=== PATIENT | female | born 1965 | race African-American/Black ===

== ENCOUNTER 2018-01-09 16:02 | Emergency (ER) | payer MEDICARE, MEDICAID ==
[~2018-01-09] VITALS: Ht 160 cm; Wt 90.0 kg
[2018-01-09] MEDS ORDERED: PHEN-434 PO (16:10)
[2018-01-09] MEDS ORDERED: HYDROCODONE/ACETAMINOPHEN 5/325MG TABLET PO ONE (18:45)
[2018-01-09 18:46] LABS: CLARITY URINE CLEAR (CLEAR); COLOR URINE YELLOW (YELLOW); KETONES URINE NEGATIVE (NEGATIVE); LEUKOCYTE ESTERASE URINE NEGATIVE (NEGATIVE); NITRITE URINE NEGATIVE (NEGATIVE); OCCULT BLOOD URINE NEGATIVE (NEGATIVE); PH URINE 5.5 (4.5-8.0); PROTEIN URINE 3+ (NEGATIVE); SPECIFIC GRAVITY URINE 1.017 (1.005-1.030)
[2018-01-09 18:53] LABS: METHADONE URINE SCREEN NEGATIVE (NEGATIVE); OPIATES URINE SCREEN NEGATIVE (NEGATIVE)
[2018-01-09 18:54] LABS: *AMPHETAMINES SCREEN URINE NEGATIVE (NEGATIVE); *BARBITURATES SCREEN URINE NEGATIVE (NEGATIVE); *BENZODIAZEPINES SCREEN URINE NEGATIVE (NEGATIVE); *COCAINE SCREEN URINE NEGATIVE (NEGATIVE); CANNABINOID URINE SCREEN NEGATIVE (NEGATIVE); PHENCYCLIDINE URINE SCREEN NEGATIVE (NEGATIVE)
[2018-01-09 20:58] VITALS: BP 151/95
== END 2018-01-09 21:30 | disposition home or self-care (01) ==
LOC: ER 16:02
DX: M47.896 Other spondylosis, lumbar region (principal); M43.16 Spondylolisthesis, lumbar region; G89.29 Other chronic pain; R26.9 Unspecified abnormalities of gait and mobility; N17.0 Acute kidney failure with tubular necrosis; E86.0 Dehydration; I10 Essential (primary) hypertension; R61 Generalized hyperhidrosis; R80.9 Proteinuria, unspecified; R82.71 Bacteriuria; K08.9 Disorder of teeth and supporting structures, unspecified; E66.9 Obesity, unspecified; Z68.35 Body mass index [BMI] 35.0-35.9, adult; J45.909 Unspecified asthma, uncomplicated; G40.909 Epilepsy, unspecified, not intractable, without status epilepticus
CPT/HCPCS: 72070; 72100; 80305; 81003; 99285

== ENCOUNTER 2018-01-20 03:41 | Emergency (ER) | payer MEDICARE, MEDICAID ==
[~2018-01-20] VITALS: Ht 165.1 cm; Wt 81.8 kg
[~2018-01-20 03:41] MED LIST: PHEN-434 PO
[2018-01-20] MEDS ORDERED: MORPHINE SULFATE 10 MG/ML CPJ IM ONE (05:30)
[2018-01-20] MEDS ORDERED: HYDROCODONE/ACETAMINOPHEN 5/325MG TABLET PO ONE (06:30)
[2018-01-20] MEDS ORDERED: ALBUTEROL (0.083%) 2.5MG/3ML NEB HHN ONE (06:30)
[2018-01-20] MEDS ORDERED: IBUPROFEN 600MG TABLET PO ONE (07:30)
[2018-01-20 16:37] VITALS: BP 152/78
== END 2018-01-20 17:23 | disposition home or self-care (01) ==
LOC: ER 03:41
DX: M54.5 Low back pain (principal); R06.2 Wheezing; J45.909 Unspecified asthma, uncomplicated; I10 Essential (primary) hypertension; G35 Multiple sclerosis; Z88.8 Allergy status to other drugs, medicaments and biological substances; Z88.2 Allergy status to sulfonamides; Z98.890 Other specified postprocedural states
CPT/HCPCS: 94640; 96372; 99283; J2270; J7611

== ENCOUNTER 2018-01-21 16:51 | Emergency (ER) | payer MEDICARE, MEDICAID ==
[~2018-01-21] VITALS: Ht 162.6 cm; Wt 82.0 kg
[2018-01-21 16:53] VITALS: BP 136/94
[2018-01-21] MEDS ORDERED: IPRATROPIUM BROMIDE (0.02%) 0.5MG/2.5ML NEB HHN STA (16:54)
[2018-01-21] MEDS ORDERED: ALBUTEROL (0.083%) 2.5MG/3ML NEB HHN STA (16:54)
[2018-01-21] MEDS ORDERED: PREDNISONE 20MG TABLET PO STA (16:54)
[2018-01-21] MEDS ORDERED: IBUPROFEN 600MG TABLET PO ONE ×2 (17:00→17:15)
== END 2018-01-21 17:07 | disposition left against medical advice (07) ==
LOC: ER 17:05
DX: J45.901 Unspecified asthma with (acute) exacerbation (principal); M54.89 Other dorsalgia
CPT/HCPCS: 99281; J7611

== ENCOUNTER 2018-01-23 02:25 | Emergency (ER) | payer MEDICARE, MEDICAID ==
[~2018-01-23] VITALS: Ht 160 cm; Wt 100.0 kg
[2018-01-23] MEDS ORDERED: KETOROLAC 60MG/2ML VIAL IM ONE (04:15)
[2018-01-23] MEDS ORDERED: MORPHINE SULFATE 10 MG/ML CPJ IM ONE (04:15)
[2018-01-23] MEDS ORDERED: HYDROCODONE/ACETAMINOPHEN 5/325MG TABLET PO ONE (06:15)
[2018-01-23 07:53] VITALS: BP 137/78
== END 2018-01-23 07:57 | disposition home or self-care (01) ==
LOC: ER 02:49
DX: M43.17 Spondylolisthesis, lumbosacral region (principal); M54.9 Dorsalgia, unspecified; I10 Essential (primary) hypertension; G40.909 Epilepsy, unspecified, not intractable, without status epilepticus; J45.909 Unspecified asthma, uncomplicated; Z88.8 Allergy status to other drugs, medicaments and biological substances
CPT/HCPCS: 96372; 99284; J1885; J2270

== ENCOUNTER 2018-02-03 04:16 | Emergency (ER) | payer MEDICARE, MEDICAID ==
[~2018-02-03] VITALS: Ht 152.4 cm; Wt 81.0 kg
[2018-02-03] MEDS ORDERED: KETOROLAC 60MG/2ML VIAL IM STA (07:39)
[2018-02-03 08:25] LABS: CLARITY URINE CLEAR (CLEAR); COLOR URINE YELLOW (YELLOW); KETONES URINE NEGATIVE (NEGATIVE); LEUKOCYTE ESTERASE URINE NEGATIVE (NEGATIVE); NITRITE URINE NEGATIVE (NEGATIVE); OCCULT BLOOD URINE NEGATIVE (NEGATIVE); PROTEIN URINE 2+ (NEGATIVE); SPECIFIC GRAVITY URINE 1.021 (1.005-1.030); UROBILINOGEN URINE 0.2 E.U./dL (0.2-1.0)
[2018-02-03] MEDS ORDERED: HYDROCODONE/APAP 7.5/325MG 1 TAB TABLET PO ONE (08:45)
[2018-02-03] MEDS ORDERED: CLONIDINE 0.1MG TABLET PO ONE ×2 (09:00→14:15)
[2018-02-03 11:30] LABS: BASOPHILS % 1.4 % (0.0-2.0); EOSINOPHILS % 3.9 % (0.0-5.0); HEMOGLOBIN. 11.1 g/dL (12.0-16.0); LYMPHOCYTES % 32.2 % (20.0-50.0); MEAN CORPUSCULAR HEMOGLOBIN 25.7 pg (28.0-32.0); MEAN CORPUSCULAR VOLUME 78.8 fL (81.0-99.0); MEAN PLATELET VOLUME 7.5 fl (7.4-10.4); MONOCYTES % 10.3 % (2.0-8.0); NEUTROPHILS % 52.2 % (40.0-76.0); PLATELET 292 x1000/uL (130-400); RED BLOOD CELL COUNT 4.31 mill/uL (4.2-5.4); RED CELL DISTRIBUTION WIDTH 18.8 % (11.6-14.6)
[2018-02-03 12:08] LABS: CHLORIDE 103 mEq/L (98-107)
[2018-02-03] MEDS ORDERED: HYDROCODONE/ACETAMINOPHEN 5/325MG TABLET PO STA (13:23)
[2018-02-03 14:11] VITALS: BP 196/122
[2018-02-03] MEDS ORDERED: IOHEXOL-300 100 ML BOTTLE ONE (14:59)
== END 2018-02-03 14:37 | disposition home or self-care (01) ==
LOC: ER 04:16
DX: M54.41 Lumbago with sciatica, right side (principal); M43.10 Spondylolisthesis, site unspecified; J45.909 Unspecified asthma, uncomplicated; I10 Essential (primary) hypertension; Z88.8 Allergy status to other drugs, medicaments and biological substances
CPT/HCPCS: 36415; 74177; 80053; 81003; 83690; 85025; 96372; 99285; J1885; Q9967

== ENCOUNTER 2018-02-15 03:15 | Emergency (ER) | payer MEDICARE, MEDICAID ==
[~2018-02-15] VITALS: Ht 160 cm; Wt 68.0 kg
[2018-02-15] MEDS ORDERED: KETOROLAC 60MG/2ML VIAL IM ONE (06:45)
[2018-02-15] MEDS ORDERED: HYDROCODONE/ACETAMINOPHEN 5/325MG TABLET PO ONE (06:45)
[2018-02-15 08:51] VITALS: BP 180/100
== END 2018-02-15 08:54 | disposition home or self-care (01) ==
LOC: ER 03:15
DX: G89.29 Other chronic pain (principal); M54.5 Low back pain; I10 Essential (primary) hypertension; J45.909 Unspecified asthma, uncomplicated; R56.9 Unspecified convulsions; Z88.8 Allergy status to other drugs, medicaments and biological substances; Z91.09 Other allergy status, other than to drugs and biological substances; Z79.899 Other long term (current) drug therapy
CPT/HCPCS: 96372; 99283; J1885

== ENCOUNTER 2018-02-16 02:14 | Emergency (ER) | payer MEDICARE, MEDICAID ==
[~2018-02-16] VITALS: Ht 152.4 cm; Wt 82.0 kg
[2018-02-16] MEDS ORDERED: IBUPROFEN 600MG TABLET PO ONE (03:45)
[2018-02-16] MEDS ORDERED: ACETAMINOPHEN WITH CODEINE 300/30MG TABLET PO ONE (03:45)
[2018-02-16 03:51] VITALS: BP 148/82
== END 2018-02-16 04:25 | disposition home or self-care (01) ==
LOC: ER 02:14
DX: M54.5 Low back pain (principal); G89.29 Other chronic pain; J45.909 Unspecified asthma, uncomplicated; Z88.8 Allergy status to other drugs, medicaments and biological substances
CPT/HCPCS: 81025; 99283

== ENCOUNTER 2018-02-18 19:34 | Emergency (ER) | payer MEDICARE, MEDICAID ==
[~2018-02-18] VITALS: Ht 152.4 cm; Wt 86.0 kg
[2018-02-18] MEDS ORDERED: KETOROLAC 60MG/2ML VIAL IM ONE (21:15)
[2018-02-18] MEDS ORDERED: ONDANSETRON HCL 4MG/2ML VIAL IV ONE (23:45)
[2018-02-18] MEDS ORDERED: MORPHINE SULFATE 10 MG/ML CPJ IV ONE (23:45)
[2018-02-19 00:56] VITALS: BP 147/86
== END 2018-02-19 02:13 | disposition home or self-care (01) ==
LOC: ER 19:34
DX: M54.5 Low back pain (principal); J45.909 Unspecified asthma, uncomplicated; I10 Essential (primary) hypertension; W18.39XA Other fall on same level, initial encounter; Y93.89 Activity, other specified; Y92.89 Other specified places as the place of occurrence of the external cause; Y99.8 Other external cause status; Z88.8 Allergy status to other drugs, medicaments and biological substances; Z88.2 Allergy status to sulfonamides
CPT/HCPCS: 72100; 96372; 96374; 96375; 99284; J1885; J2270; J2405

== ENCOUNTER 2018-02-19 09:23 | Emergency (ER) | payer MEDICARE, MEDICAID ==
[~2018-02-19] VITALS: Ht 167.6 cm; Wt 87.0 kg
[2018-02-19] MEDS ORDERED: KETOROLAC 30MG/ML VIAL IV STA (16:35)
[2018-02-19] MEDS ORDERED: SODIUM CHLORIDE 0.9% 1,000 ML IV ONE (16:35)
[2018-02-19] MEDS ORDERED: DIAZEPAM 5 MG TABLET PO ONE (16:45)
[2018-02-19 18:45] VITALS: BP 184/99
[2018-02-19] MEDS ORDERED: ACETAMINOPHEN 325MG TABLET PO ONE (20:00)
== END 2018-02-19 20:15 | disposition home or self-care (01) ==
LOC: ER 09:50
DX: M54.5 Low back pain (principal); J45.909 Unspecified asthma, uncomplicated; I10 Essential (primary) hypertension; Z88.8 Allergy status to other drugs, medicaments and biological substances; Z88.2 Allergy status to sulfonamides; Z96.659 Presence of unspecified artificial knee joint; Z98.890 Other specified postprocedural states
CPT/HCPCS: 72131; 93971; 96374; 99285; J1885; J7030

== ENCOUNTER 2019-03-30 01:18 | Emergency (ER) | payer MEDICARE, MEDICAID ==
[~2019-03-30] VITALS: Ht 165.1 cm; Wt 100.0 kg
[2019-03-30] MEDS ORDERED: IPRATROPIUM BROMIDE (0.02%) 0.5MG/2.5ML NEB HHN STA (01:34)
[2019-03-30] MEDS ORDERED: PREDNISONE 20MG TABLET PO STA (01:34)
[2019-03-30] MEDS ORDERED: VISCOUS LIDOCAINE 2% 15 ML UDC MM STA (02:57)
[2019-03-30] MEDS ORDERED: ALBUTEROL (0.5%) 2.5MG/0.5ML NEB HHN ONE (03:00)
[2019-03-30 04:07] VITALS: BP 183/90
== END 2019-03-30 04:14 | disposition home or self-care (01) ==
LOC: ER 01:18
DX: J45.901 Unspecified asthma with (acute) exacerbation (principal); E66.9 Obesity, unspecified; I10 Essential (primary) hypertension; Z88.8 Allergy status to other drugs, medicaments and biological substances; Z87.01 Personal history of pneumonia (recurrent)
CPT/HCPCS: 71045; 94640; 99284; J7512; J7611

== ENCOUNTER 2019-04-27 03:15 | Emergency (ER) | payer MEDICARE, MEDICAID ==
[~2019-04-27] VITALS: Ht 160 cm; Wt 92.0 kg
[2019-04-27] MEDS ORDERED: IPRATROPIUM BROMIDE (0.02%) 0.5MG/2.5ML NEB HHN STA (04:13)
[2019-04-27] MEDS ORDERED: ALBUTEROL (0.083%) 2.5MG/3ML NEB HHN STA (04:13)
[2019-04-27] MEDS ORDERED: HYDROCODONE/ACETAMINOPHEN 5/325MG TABLET PO STA (04:13)
[2019-04-27 04:45] LABS: CHLORIDE 104 mEq/L (98-107)
[2019-04-27 04:53] LABS: BASOPHILS % 0.7 % (0.0-2.0); EOSINOPHILS % 4.1 % (0.0-5.0); HEMATOCRIT. 34.3 % (36.0-48.0); HEMOGLOBIN. 11.6 g/dL (12.0-16.0); LYMPHOCYTES % 24.6 % (20.0-50.0); MEAN CORPUSCULAR HEMOGLOBIN 28.8 pg (28.0-32.0); MEAN CORPUSCULAR VOLUME 85.4 fL (81.0-99.0); MEAN PLATELET VOLUME 7.6 fl (7.4-10.4); MONOCYTES % 11.4 % (2.0-8.0); NEUTROPHILS % 59.2 % (40.0-76.0); PLATELET 200 x1000/uL (130-400); RED BLOOD CELL COUNT 4.02 mill/uL (4.2-5.4); RED CELL DISTRIBUTION WIDTH 14.7 % (11.6-14.6)
[2019-04-27 06:33] VITALS: BP 132/80
== END 2019-04-27 06:33 | disposition home or self-care (01) ==
LOC: ER 03:45
DX: M54.5 Low back pain (principal); R07.0 Pain in throat; J45.909 Unspecified asthma, uncomplicated; I10 Essential (primary) hypertension; Z88.8 Allergy status to other drugs, medicaments and biological substances
CPT/HCPCS: 36415; 71045; 80048; 85025; 94640; 99284; J7611

== ENCOUNTER 2022-09-17 10:41 | Inpatient (IN) | payer BC, MEDICAID ==
[~2022-09-17] VITALS: Ht 154.9 cm; Wt 82.2 kg
[2022-09-17 14:07] LABS: BASOPHILS % 0.6 % (0.0-2.0); EOSINOPHILS % 4.2 % (0.0-5.0); HEMATOCRIT. 27.7 % (36.0-48.0); HEMOGLOBIN. 9.1 g/dL (12.0-16.0); LYMPHOCYTES % 18.7 % (20.0-50.0); MEAN CORPUSCULAR HEMOGLOBIN 29.2 pg (28.0-32.0); MEAN CORPUSCULAR VOLUME 88.8 fL (81.0-99.0); MEAN PLATELET VOLUME 7.8 fl (7.4-10.4); MONOCYTES % 10.2 % (2.0-8.0); NEUTROPHILS % 66.3 % (40.0-76.0); PLATELET 191 x1000/uL (130-400); RED BLOOD CELL COUNT 3.12 mill/uL (4.2-5.4)
[2022-09-17 14:14] LABS: CHLORIDE 108 mEq/L (98-107)
[2022-09-17] MEDS ORDERED: FUROSEMIDE 100MG/10ML VIAL IVP ONE (14:45)
[2022-09-18 05:05] VITALS: BP 169/97
[2022-09-18] MEDS ORDERED: CLONIDINE 0.1MG TABLET PO PRN (07:00)
[2022-09-18] MEDS ORDERED: ACETAMINOPHEN 325MG TABLET PO PRN (07:00)
[2022-09-18 08:00] VITALS: BP 184/127
[2022-09-18] MEDS: FUROSEMIDE 40MG/4ML VIAL IVP SCH ×3 (08:05→16:41)
[2022-09-18] MEDS: HEPARIN 5000 UNITS/ML VIAL SUBCUT SCH ×3 (08:06→21:08)
[2022-09-18] MEDS: HYDROCODONE/ACETAMINOPHEN 5/325MG TABLET PO PRN ×2 (08:07→21:11)
[2022-09-18] MEDS ORDERED: IPRATROPIUM/ALBUTEROL 0.5-3(2.5)MG/3ML NEB HHN PRN (09:15)
[2022-09-18] MEDS ORDERED: ONDANSETRON HCL 4MG/2ML INJ IV PRN (09:15)
[2022-09-18] MEDS ORDERED: DOCUSATE SODIUM 100MG CAPSULE PO PRN (09:15)
[2022-09-18] MEDS ORDERED: LORAZEPAM 0.5MG TABLET PO PRN (09:15)
[2022-09-18] MEDS: HYDRALAZINE HCL 50MG TABLET PO SCH ×3 (10:21→21:07)
[2022-09-18] MEDS: AMLODIPINE 10MG TABLET PO SCH (10:21)
[2022-09-18] MEDS ORDERED: POTASSIUM CHLORIDE 20MEQ TABLET SR PO NR (10:30)
[2022-09-18 12:00] VITALS: BP 146/72
[2022-09-18] MEDS ORDERED: DEXTROSE 50% WATER 50ML SYRINGE IV SCH (12:45)
[2022-09-18] MEDS: NALOXONE HCL 0.4MG/ML VIAL IV PRN ×2 (12:58→14:50)
[2022-09-18 13:12] LABS: CLARITY URINE CLEAR (CLEAR); COLOR URINE YELLOW (YELLOW); KETONES URINE NEGATIVE (NEGATIVE); LEUKOCYTE ESTERASE URINE NEGATIVE (NEGATIVE); NITRITE URINE NEGATIVE (NEGATIVE); OCCULT BLOOD URINE NEGATIVE (NEGATIVE); PH URINE 7.5 (4.5-8.0); PROTEIN URINE 3+ (NEGATIVE); SPECIFIC GRAVITY URINE 1.009 (1.005-1.030); UROBILINOGEN URINE 0.2 E.U./dL (0.2-1.0)
[2022-09-18 13:41] LABS: *AMPHETAMINES SCREEN URINE NEGATIVE (NEGATIVE); *BARBITURATES SCREEN URINE NEGATIVE (NEGATIVE); *BENZODIAZEPINES SCREEN URINE NEGATIVE (NEGATIVE); *COCAINE SCREEN URINE NEGATIVE (NEGATIVE); CANNABINOID URINE SCREEN NEGATIVE (NEGATIVE); METHADONE URINE SCREEN NEGATIVE (NEGATIVE); OPIATES URINE SCREEN NEGATIVE (NEGATIVE); PHENCYCLIDINE URINE SCREEN NEGATIVE (NEGATIVE)
[2022-09-18 14:10] LABS: BG BASE EXCESS -0.9 mmol/L (-2.0-2.0); BG CARBOXYHEMOGLOBIN 0.3 % (0.5-1.5); BG DEOXYHEMOGLOBIN 11.2 % (0.0-5.0); BG FRACTION INSPIRED OXYGEN 21; BG HCO3 ACT 25.7 mmol/L (22.0-26.0); BG METHEMOGLOBIN 0.1 % (0.0-1.5); BG OXYGEN SATURATION 88.8 % (92.0-98.5); BG OXYHEMOGLOBIN 88.4 % (94.0-97.0); BG PCO2 52.9 mmHg (35.0-45.0); BG PH 7.305 (7.350-7.450); BG PO2 60.8 mmHg (75.0-100.0); BG SAMPLE SITE RIGHT BRACHIAL; BG TOTAL HEMOGLOBIN 9.4 g/dL (12.0-18.0); BG VENT MODE ROOM AIR
[2022-09-18] MEDS ORDERED: DEXTROSE 50% WATER 50ML SYRINGE IV PRN (14:45)
[2022-09-18 16:00] VITALS: BP 114/80
[2022-09-18] MEDS: BLOOD SUGAR DIAGNOSTIC STRIP TEST SCH ×2 (16:39→21:02)
[2022-09-18] MEDS: INSULIN LISPRO 100 UNITS/ML SUBCUT SCH ×2 (16:39→21:00)
[2022-09-18 17:10] LABS: BG BASE EXCESS 0.9 mmol/L (-2.0-2.0); BG CARBOXYHEMOGLOBIN 0.3 % (0.5-1.5); BG FRACTION INSPIRED OXYGEN 40; BG HCO3 ACT 27.4 mmol/L (22.0-26.0); BG METHEMOGLOBIN 0.2 % (0.0-1.5); BG OXYHEMOGLOBIN 96.5 % (94.0-97.0); BG PH 7.324 (7.350-7.450); BG PO2 97.8 mmHg (75.0-100.0); BG SAMPLE SITE RIGHT BRACHIAL; BG TOTAL HEMOGLOBIN 9.7 g/dL (12.0-18.0); BG VENT MODE MASK - BIPAP
[2022-09-18 20:00] VITALS: BP 149/95
[2022-09-18] MEDS: DOXAZOSIN MESYLATE 2MG TABLET PO SCH (21:07)
[2022-09-18 23:59] VITALS: BP 123/72
[2022-09-19 00:16] LABS: D-DIMER 0.54 mg/L FEU (<0.50)
[2022-09-19] MEDS: HYDROCODONE/ACETAMINOPHEN 5/325MG TABLET PO PRN ×3 (02:35→21:05)
[2022-09-19 04:00] VITALS: BP 106/66
[2022-09-19 06:25] LABS: HEMATOCRIT. 27.5 % (36.0-48.0); HEMOGLOBIN. 8.9 g/dL (12.0-16.0); MEAN CORPUSCULAR HEMOGLOBIN 28.8 pg (28.0-32.0); MEAN CORPUSCULAR VOLUME 89.2 fL (81.0-99.0); MEAN PLATELET VOLUME 8.2 fl (7.4-10.4); PLATELET 178 x1000/uL (130-400); RED BLOOD CELL COUNT 3.08 mill/uL (4.2-5.4)
[2022-09-19] MEDS: BLOOD SUGAR DIAGNOSTIC STRIP TEST SCH ×4 (06:36→21:01)
[2022-09-19] MEDS: FUROSEMIDE 40MG/4ML VIAL IVP SCH ×2 (06:37→17:44)
[2022-09-19] MEDS: HEPARIN 5000 UNITS/ML VIAL SUBCUT SCH ×3 (06:38→21:05)
[2022-09-19] MEDS: HYDRALAZINE HCL 50MG TABLET PO SCH ×3 (06:38→21:02)
[2022-09-19] MEDS: INSULIN LISPRO 100 UNITS/ML SUBCUT SCH ×4 (07:20→21:00)
[2022-09-19 08:00] VITALS: BP 129/98
[2022-09-19 09:05] LABS: BG BASE EXCESS 3.4 mmol/L (-2.0-2.0); BG CARBOXYHEMOGLOBIN 0.2 % (0.5-1.5); BG DEOXYHEMOGLOBIN 6.8 % (0.0-5.0); BG FRACTION INSPIRED OXYGEN 21; BG METHEMOGLOBIN 0.3 % (0.0-1.5); BG OXYGEN SATURATION 93.2 % (92.0-98.5); BG OXYHEMOGLOBIN 92.7 % (94.0-97.0); BG PCO2 49.2 mmHg (35.0-45.0); BG PH 7.388 (7.350-7.450); BG PO2 65.8 mmHg (75.0-100.0); BG SAMPLE SITE RIGHT BRACHIAL; BG TOTAL HEMOGLOBIN 10.2 g/dL (12.0-18.0); BG VENT MODE ROOM AIR
[2022-09-19] MEDS: AMLODIPINE 10MG TABLET PO SCH (10:00)
[2022-09-19 12:00] VITALS: BP 131/74
[2022-09-19 16:00] VITALS: BP 123/79
[2022-09-19 18:32] LABS: PLATELET ESTIMATE NORMAL
[2022-09-19 20:00] VITALS: BP 143/88
[2022-09-19] MEDS: DOXAZOSIN MESYLATE 2MG TABLET PO SCH (21:03)
[2022-09-19] MEDS: IPRATROPIUM/ALBUTEROL 0.5-3(2.5)MG/3ML NEB HHN SCH (22:49)
[2022-09-19 23:51] VITALS: BP 133/76
[2022-09-20] MEDS: IPRATROPIUM/ALBUTEROL 0.5-3(2.5)MG/3ML NEB HHN SCH ×2 (00:58→08:29)
[2022-09-20 04:00] VITALS: BP 147/95
[2022-09-20] MEDS: FUROSEMIDE 40MG/4ML VIAL IVP SCH (06:38)
[2022-09-20] MEDS: HEPARIN 5000 UNITS/ML VIAL SUBCUT SCH ×2 (06:38→14:38)
[2022-09-20] MEDS: HYDRALAZINE HCL 50MG TABLET PO SCH ×2 (06:38→14:38)
[2022-09-20] MEDS: BLOOD SUGAR DIAGNOSTIC STRIP TEST SCH ×2 (06:51→11:50)
[2022-09-20] MEDS: INSULIN LISPRO 100 UNITS/ML SUBCUT SCH ×2 (07:20→12:20)
[2022-09-20 08:00] VITALS: BP 132/89
[2022-09-20 08:04] LABS: BASOPHILS % 1.3 % (0.0-2.0); EOSINOPHILS % 5.9 % (0.0-5.0); HEMATOCRIT. 26.7 % (36.0-48.0); HEMOGLOBIN. 8.9 g/dL (12.0-16.0); MEAN CORPUSCULAR HEMOGLOBIN 29.5 pg (28.0-32.0); MEAN CORPUSCULAR VOLUME 88.3 fL (81.0-99.0); MEAN PLATELET VOLUME 8.2 fl (7.4-10.4); MONOCYTES % 13.2 % (2.0-8.0); NEUTROPHILS % 46.6 % (40.0-76.0); PLATELET 175 x1000/uL (130-400); RED BLOOD CELL COUNT 3.02 mill/uL (4.2-5.4)
[2022-09-20 10:07] LABS: ANTI-NUCLEAR ANTIBODIES DIRECT Negative (Negative)
[2022-09-20] MEDS: AMLODIPINE 10MG TABLET PO SCH (13:18)
[2022-09-20 16:36] VITALS: BP 145/78
== END 2022-09-20 15:00 | disposition left against medical advice (07) | DRG 291 ==
LOC: ER 10:41 → MICUSO 16:13 → EDBEDREQTM 16:45 → EDBEDREQ 16:45 → 3WST 09-18 05:00
PROVIDERS: ADMIT Internal Medicine; ATTEND Internal Medicine
PROC: 5A09357 Assistance with Respiratory Ventilation, Less than 24 Consecutive Hours, Continuous Positive Airway Pressure (ICD-10-PCS; principal; 2022-09-18)
PROC: 5A09357 Assistance with Respiratory Ventilation, Less than 24 Consecutive Hours, Continuous Positive Airway Pressure (ICD-10-PCS; 2022-09-20)
DX: I13.0 Hypertensive heart and chronic kidney disease with heart failure and stage 1 through stage 4 chronic kidney disease, or unspecified chronic kidney disease (principal); I50.41 Acute combined systolic (congestive) and diastolic (congestive) heart failure; J96.21 Acute and chronic respiratory failure with hypoxia; N17.9 Acute kidney failure, unspecified; J91.8 Pleural effusion in other conditions classified elsewhere; Z20.822 Contact with and (suspected) exposure to COVID-19; Z53.29 Procedure and treatment not carried out because of patient's decision for other reasons; G40.909 Epilepsy, unspecified, not intractable, without status epilepticus; D64.9 Anemia, unspecified; E87.6 Hypokalemia; I16.0 Hypertensive urgency; J45.909 Unspecified asthma, uncomplicated; N18.9 Chronic kidney disease, unspecified; R79.89 Other specified abnormal findings of blood chemistry; N28.1 Cyst of kidney, acquired; D72.821 Monocytosis (symptomatic); Z87.891 Personal history of nicotine dependence; Z88.8 Allergy status to other drugs, medicaments and biological substances; Z99.81 Dependence on supplemental oxygen
CPT/HCPCS: 36415; 36600; 71045; 76770; 80048; 80053; 80061; 80305; 81003; 82140; 82375; 82550; 82570; 82805; 82962; 83036; 83735; 83880; 84156; 84443; 84484; 85025; 85379; 86038; 86160; 87426; 93005; 93306; 93970; 93971; 94618; 94640; 94660; 99285; J1644; J1940; J2310